=== PATIENT | male | born 1950 | race Asian ===

== ENCOUNTER 2018-10-05 21:50 | Emergency (ER) | payer OTHER ==
[2018-10-06 02:00] LABS: ADD MAN DIFF? NO
[2018-10-06 02:03] LABS: BASOPHIL # 0.1 10^3/ul (0.0-0.1); BASOPHILS % 0.6 % (0.0-2.0); EOSINOPHILS # 0.3 10^3/ul (0.0-0.5); HEMATOCRIT 38.7 % (42.0-52.0); HEMOGLOBIN 11.9 g/dl (14.0-18.0); LYMPHOCYTES # 2.4 10^3/ul (0.8-2.9); LYMPHOCYTES % 27.7 % (15.0-51.0); MEAN CORPUSCULAR HGB CONC 30.7 g/dl (32.0-37.0); MEAN CORPUSCULAR VOLUME 71.4 fl (82.0-101.0); MONOCYTE # 0.7 10^3/ul (0.3-0.9); MONOCYTES % 8.1 % (0.0-11.0); NEUTROPHIL # 5.3 10^3/ul (1.6-7.5); PLATELET COUNT 398 10^3/UL (140-415); RED BLOOD COUNT 5.42 10^6/ul (4.70-6.10); RED CELL DISTRIBUTION WIDTH 14.2 % (11.5-14.5)
[2018-10-06 02:03] LABS: WHITE BLOOD COUNT 8.8 10^3/ul (4.8-10.8)
[2018-10-06 02:18] LABS: INR 1.02; PROTIME 13.5 Sec (11.9-14.9); PT RATIO 1.1
[2018-10-06 02:19] LABS: ALANINE AMINOTRANSFERASE 20 IU/L (13-69); ALBUMIN 4.6 g/dl (3.3-4.9); ALBUMIN/GLOBULIN RATIO 1.24; ALKALINE PHOSPHATASE 85 IU/L (42-121); ANION GAP 17 (5-13); ASPARTATE AMINO TRANSFERASE 21 IU/L (15-46); BILIRUBIN,INDIRECT 0.1 mg/dl (0-1.1); BILIRUBIN,TOTAL 0.1 mg/dl (0.2-1.3); BLOOD UREA NITROGEN 22 mg/dl (7-20); CALCIUM 9.8 mg/dl (8.4-10.2); CARBON DIOXIDE 25 mmol/L (21-31); CHLORIDE 98 mmol/L (97-110); CREATININE 1.32 mg/dl (0.61-1.24); Estimated GFR 54 mL/min (>60); GLUCOSE 162 mg/dl (70-220); LIPASE 99 U/L (23-300); PARTIAL THROMBOPLASTIN TIME 32.6 Sec (23.0-35.0); POTASSIUM 4.7 mmol/L (3.5-5.1); SODIUM 140 mmol/L (135-144); TOTAL PROTEIN 8.3 g/dl (6.1-8.1)
[2018-10-06 02:27] LABS: B-TYPE NATRIURETIC PEPTIDE 72 PG/ML (0-125)
[2018-10-06 02:32] LABS: TROPONIN-I 0.033 ng/ml (0.000-0.120)
[2018-10-06 04:10] LABS: FREE THYROXINE INDEX (Calc) 4.05 ug/ml (0.65-3.89); T3 UPTAKE 34.9 % (23.5-40.5); T4 (THYROXINE) 11.6 ug/dl (5.5-11.0)
== END 2018-10-06 09:30 | disposition home or self-care (01) ==
LOC: E/R 21:50
DX: R60.0 Localized edema (principal); E11.9 Type 2 diabetes mellitus without complications; I10 Essential (primary) hypertension; E03.9 Hypothyroidism, unspecified; J45.909 Unspecified asthma, uncomplicated; R07.9 Chest pain, unspecified; Z87.891 Personal history of nicotine dependence
CPT/HCPCS: 36415; 71045; 80053; 83690; 83880; 84436; 84443; 84479; 84484; 85025; 85610; 85730; 93005; 99285-25

== ENCOUNTER 2018-10-27 00:05 | Emergency (ER) | payer OTHER ==
[2018-10-27] MEDS ORDERED: SODIUM CHLORIDE 0.9% 1L BAG IV* (00:34)
[2018-10-27 00:48] LABS: MODE ROOM AIR; MetHgb Venous 0.2 %; Sample Type Blood venous; Site VENOUS LINE; Venous COHb 0.4 %; Venous Fraction OxyHgb 58.3 %; Venous Oxygen Sat 58.7 mmHG (55.0-75.0); Venous Total Hemglobin 11.8 g/dl
[2018-10-27 00:59] LABS: ADD MAN DIFF? NO
[2018-10-27 01:00] LABS: WHITE BLOOD COUNT 12.1 10^3/ul (4.8-10.8)
[2018-10-27 01:00] LABS: BASOPHIL # 0.1 10^3/ul (0.0-0.1); BASOPHILS % 0.5 % (0.0-2.0); EOSINOPHILS # 0.1 10^3/ul (0.0-0.5); HEMATOCRIT 35.9 % (42.0-52.0); HEMOGLOBIN 11.1 g/dl (14.0-18.0); LYMPHOCYTES # 1.8 10^3/ul (0.8-2.9); LYMPHOCYTES % 14.5 % (15.0-51.0); MEAN CORPUSCULAR HEMOGLOBIN 21.7 pg (29.0-33.0); MEAN CORPUSCULAR HGB CONC 30.9 g/dl (32.0-37.0); MEAN CORPUSCULAR VOLUME 70.1 fl (82.0-101.0); MONOCYTES % 8.5 % (0.0-11.0); NEUTROPHIL # 9.1 10^3/ul (1.6-7.5); NEUTROPHILS % 74.5 % (39.0-77.0); PLATELET COUNT 445 10^3/UL (140-415); RED BLOOD COUNT 5.12 10^6/ul (4.70-6.10); RED CELL DISTRIBUTION WIDTH 14.1 % (11.5-14.5)
[2018-10-27 01:18] LABS: ALANINE AMINOTRANSFERASE 16 IU/L (13-69); ALBUMIN 4.1 g/dl (3.3-4.9); ALBUMIN/GLOBULIN RATIO 1.07; ALKALINE PHOSPHATASE 73 IU/L (42-121); ANION GAP 14 (5-13); ASPARTATE AMINO TRANSFERASE 19 IU/L (15-46); BILIRUBIN,INDIRECT 0.1 mg/dl (0-1.1); BILIRUBIN,TOTAL 0.1 mg/dl (0.2-1.3); BLOOD UREA NITROGEN 29 mg/dl (7-20); CALCIUM 9.3 mg/dl (8.4-10.2); CARBON DIOXIDE 23 mmol/L (21-31); CHLORIDE 97 mmol/L (97-110); CREATININE 1.59 mg/dl (0.61-1.24); Estimated GFR 43 mL/min (>60); GLUCOSE 271 mg/dl (70-220); SODIUM 134 mmol/L (135-144); TOTAL PROTEIN 7.9 g/dl (6.1-8.1)
[2018-10-27 01:19] LABS: PHOSPHORUS 3.3 mg/dl (2.5-4.9)
[2018-10-27 01:19] LABS: MAGNESIUM 1.9 mg/dl (1.7-2.5)
[2018-10-27 01:22] LABS: INR 1.07; PT RATIO 1.1
[2018-10-27 01:23] LABS: PARTIAL THROMBOPLASTIN TIME 34.3 Sec (23.0-35.0)
[2018-10-27 01:31] LABS: TROPONIN-I 0.028 ng/ml (0.000-0.120)
[2018-10-27 02:56] LABS: ADD UMIC YES; UR ASCORBIC ACID NEGATIVE (NEGATIVE); UR BILIRUBIN (Dip) NEGATIVE (NEGATIVE); UR BLOOD (Dip) 1+ mg/dL (NEGATIVE); UR CLARITY CLEAR (CLEAR); UR COLOR STRAW (YELLOW); UR GLUCOSE (Dip) 3+ mg/dL (NEGATIVE); UR KETONES (Dip) NEGATIVE (NEGATIVE); UR LEUKOCYTE ESTERASE (Dip) NEGATIVE Leu/ul (NEGATIVE); UR NITRITE (Dip) NEGATIVE (NEGATIVE); UR RBC 0 /HPF (0-5); UR SPECIFIC GRAVITY (Dip) 1.007 (1.003-1.030); UR TOTAL PROTEIN (Dip) NEGATIVE (NEGATIVE); UR UROBILINOGEN (Dip) NEGATIVE (NEGATIVE); UR WBC 4 /HPF (0-5)
[2018-10-27 04:31] LABS: URINE BLOOD (Dip) POC Negative (NEGATIVE); URINE KETONES (Dip) POC Negative (NEGATIVE); URINE LEUKOCYTE EST (Dip) POC Negative (NEGATIVE); URINE NITRITE (Dip) POC Negative (NEGATIVE); URINE TOTAL PROTEIN POC Negative (NEGATIVE)
[2018-10-27 04:31] LABS: URINE PH (Dip) POC 5.5 (5.0-8.5)
[2018-10-27] MEDS ORDERED: DOCUSATE SODIUM 100 MG CAP PO (06:30)
[2018-10-27] MEDS ORDERED: ONDANSETRON 4 MG TAB PO (06:30)
[2018-10-27] MEDS ORDERED: NACL 0.9% 3 ML SYG IV ×2 (06:30)
[2018-10-27] MEDS ORDERED: traMADol 50 MG TAB PO (06:30)
[2018-10-27] MEDS: ACCU-CHEK XX ×2 (07:49→11:12)
[2018-10-27] MEDS: SOD CHLORIDE 0.9% 1,000 ML IV (07:55)
[2018-10-27] MEDS ORDERED: glipiZIDE (XL) 2.5 MG TAB PO (09:00)
[2018-10-27 09:33] LABS: LACTIC ACID 2.4 mmol/L (0.5-2.0)
[2018-10-27] MEDS: GLIMEPIRIDE 4 MG TAB PO (10:00)
[2018-10-27] MEDS ORDERED: TRIAMTERENE/HCTZ (37.5/25) TAB PO (10:00)
[2018-10-27] MEDS: metFORMIN 500 MG TAB PO (10:00)
[2018-10-27] MEDS: ASPIRIN (EC) 81 MG TAB PO (10:39)
[2018-10-27] MEDS: FAMOTIDINE 20 MG TAB PO (10:39)
[2018-10-27] MEDS: FLUTICASONE 0.05% 16 GM NAS SPRAY NASAL (10:40)
[2018-10-27] MEDS: LISINOPRIL 20 MG TAB PO (10:41)
[2018-10-27] MEDS: GABAPENTIN 300 MG CAP PO (10:41)
[2018-10-27] MEDS: LEVOTHYROXINE 50 MCG TAB PO (10:41)
[2018-10-27] MEDS: ENOXAPARIN 40 MG/0.4 ML SYG SC (10:42)
[2018-10-27] MEDS: FLUTICASONE/VILANTEROL 200-25 INH DEVICE INH (10:42)
[2018-10-27] MEDS: TRIAMTERENE/HCTZ (37.5/25) TAB PO (10:43)
[2018-10-27] MEDS ORDERED: ATORVASTATIN 20 MG TAB PO (21:00)
== END 2018-10-27 17:14 | disposition home or self-care (01) ==
LOC: E/R 00:05
DX: G93.40 Encephalopathy, unspecified (principal); E03.9 Hypothyroidism, unspecified; I13.0 Hypertensive heart and chronic kidney disease with heart failure and stage 1 through stage 4 chronic kidney disease, or unspecified chronic kidney disease; I50.9 Heart failure, unspecified; N18.9 Chronic kidney disease, unspecified; E11.22 Type 2 diabetes mellitus with diabetic chronic kidney disease; J45.909 Unspecified asthma, uncomplicated; D64.9 Anemia, unspecified; Z87.891 Personal history of nicotine dependence; Z79.82 Long term (current) use of aspirin; Z79.84 Long term (current) use of oral hypoglycemic drugs
CPT/HCPCS: 36415; 70450; 71045; 80053; 81001; 81003; 82803; 82962; 83605; 83735; 84100; 84484; 85025; 85610; 85730; 87040-91; 87086; 92610; 93005; 96372; 99285-25

== ENCOUNTER 2019-01-13 14:02 | Inpatient (IN) | payer OTHER ==
[2019-01-13] MEDS: SOD CHLORIDE 0.9% 1,000 ML IV ×2 (15:02→21:16)
[2019-01-13 15:05] LABS: ADD MAN DIFF? NO
[2019-01-13 15:11] LABS: BASOPHIL # 0.1 10^3/ul (0.0-0.1); BASOPHILS % 0.8 % (0.0-2.0); EOSINOPHILS # 0.2 10^3/ul (0.0-0.5); EOSINOPHILS % 2.2 % (0.0-7.0); HEMATOCRIT 36.4 % (42.0-52.0); HEMOGLOBIN 11.2 g/dl (14.0-18.0); LYMPHOCYTES # 1.6 10^3/ul (0.8-2.9); LYMPHOCYTES % 18.1 % (15.0-51.0); MEAN CORPUSCULAR HEMOGLOBIN 22.4 pg (29.0-33.0); MEAN CORPUSCULAR HGB CONC 30.8 g/dl (32.0-37.0); MEAN CORPUSCULAR VOLUME 72.8 fl (82.0-101.0); MEAN PLATELET VOLUME 9.5 fl (7.4-10.4); MONOCYTE # 0.5 10^3/ul (0.3-0.9); MONOCYTES % 5.3 % (0.0-11.0); NEUTROPHIL # 6.3 10^3/ul (1.6-7.5); NEUTROPHILS % 72.8 % (39.0-77.0); PLATELET COUNT 340 10^3/UL (140-415); RED CELL DISTRIBUTION WIDTH 15.9 % (11.5-14.5)
[2019-01-13 15:11] LABS: WHITE BLOOD COUNT 8.6 10^3/ul (4.8-10.8)
[2019-01-13 15:35] LABS: ALANINE AMINOTRANSFERASE 16 IU/L (13-69); ALBUMIN 4.3 g/dl (3.3-4.9); ALBUMIN/GLOBULIN RATIO 1.22; ALKALINE PHOSPHATASE 76 IU/L (42-121); ANION GAP 12 (5-13); ASPARTATE AMINO TRANSFERASE 17 IU/L (15-46); BLOOD UREA NITROGEN 32 mg/dl (7-20); CALCIUM 9.1 mg/dl (8.4-10.2); CARBON DIOXIDE 17 mmol/L (21-31); CHLORIDE 110 mmol/L (97-110); CREATINE KINASE 35 IU/L (23-200); CREATININE 2.76 mg/dl (0.61-1.24); Estimated GFR 23 mL/min (>60); GLUCOSE 273 mg/dl (70-220); SODIUM 139 mmol/L (135-144); TOTAL PROTEIN 7.8 g/dl (6.1-8.1)
[2019-01-13 15:39] LABS: INR 1.01; PROTIME 13.4 Sec (11.9-14.9)
[2019-01-13 15:40] LABS: PARTIAL THROMBOPLASTIN TIME 34.3 Sec (23.0-35.0)
[2019-01-13 15:45] LABS: CK INDEX 2.4; CK-MB 0.83 ng/ml (0.0-2.4); TROPONIN-I < 0.012 ng/ml (0.000-0.120)
[2019-01-13] MEDS: CEFEPIME 2GM/50 ML (PMX) 50 ML IVPB (15:59)
[2019-01-13] MEDS: SODIUM CHLORIDE 0.9% 1L BAG IV* (16:00)
[2019-01-13 16:08] LABS: ACETAMINOPHEN < 10.0 ug/ml (10.0-30.0); ETHANOL < 10.0 mg/dl (0-0)
[2019-01-13 16:11] LABS: POTASSIUM 6.5 mmol/L (3.5-5.1)
[2019-01-13] MEDS: VANCOMYCIN 1 GM (PMX) 250 ML IVPB (16:25)
[2019-01-13 16:38] LABS: ADD UMIC NO; UR ASCORBIC ACID NEGATIVE (NEGATIVE); UR BILIRUBIN (Dip) NEGATIVE (NEGATIVE); UR BLOOD (Dip) NEGATIVE (NEGATIVE); UR CLARITY CLEAR (CLEAR); UR COLOR YELLOW (YELLOW); UR GLUCOSE (Dip) 3+ mg/dL (NEGATIVE); UR KETONES (Dip) NEGATIVE (NEGATIVE); UR LEUKOCYTE ESTERASE (Dip) NEGATIVE Leu/ul (NEGATIVE); UR NITRITE (Dip) NEGATIVE (NEGATIVE); UR SPECIFIC GRAVITY (Dip) 1.007 (1.003-1.030); UR TOTAL PROTEIN (Dip) NEGATIVE (NEGATIVE); UR UROBILINOGEN (Dip) NEGATIVE (NEGATIVE)
[2019-01-13 16:47] LABS: LACTIC ACID 2.5 mmol/L (0.5-2.0)
[2019-01-13] MEDS: NA BICARBONATE 8.4% 50 ML SYG IV (17:04)
[2019-01-13] MEDS: CA CHLORIDE 10% 10 ML SYRINGE IV (17:04)
[2019-01-13] MEDS: SODIUM POLYSTYRENE 15 GM KIT (POWDER + SORBITOL) PO (17:04)
[2019-01-13] MEDS: ALBUTEROL 0.5% (NEB) 2.5 MG/0.5 ML AMP INH (17:09)
[2019-01-13 17:27] LABS: AMPHETAMINE/METHAMPHETAMINE Negative (NEGATIVE); BARBITURATES Negative (NEGATIVE); CANNABINOIDS Negative (NEGATIVE); COCAINE Negative (NEGATIVE); OPIATES Negative (NEGATIVE)
[2019-01-13] MEDS ORDERED: ACETAMINOPHEN 325 MG TAB PO (17:30)
[2019-01-13] MEDS ORDERED: ONDANSETRON 4 MG INJ IV (17:30)
[2019-01-13 17:36] LABS: BENZODIAZEPINES Positive (NEGATIVE)
[2019-01-13 18:26] LABS: AMMONIA < 9 umol/l (9-30)
[2019-01-13 18:29] LABS: LACTIC ACID 3.4 mmol/L (0.5-2.0)
[2019-01-13] MEDS ORDERED: NON-FORMULARY/PATIENT OWN MED (Omeprazole* 20 MG) PO (18:30)
[2019-01-13] MEDS ORDERED: DEXTROSE 50% 50 ML SYRINGE IV ×2 (19:00)
[2019-01-13] MEDS ORDERED: GLUCOSE GEL 15 GRAM TUBE BUCCAL (19:00)
[2019-01-13] MEDS ORDERED: GLUCAGON 1 MG INJ IM (19:00)
[2019-01-13] MEDS ORDERED: GLUCOSE GEL 15 GRAM TUBE PO ×2 (19:00)
[2019-01-13 19:03] LABS: MAGNESIUM 1.9 mg/dl (1.7-2.5)
[2019-01-13 19:03] LABS: PHOSPHORUS 3.2 mg/dl (2.5-4.9)
[2019-01-13] MEDS: INSULIN ASPART [NOVOLOG] 3 ML PEN SC (21:00)
[2019-01-13] MEDS: TAMSULOSIN (SR) 0.4 MG CAP PO (21:18)
[2019-01-13] MEDS: ATORVASTATIN 20 MG TAB PO (21:18)
[2019-01-13] MEDS: NA POLYST SULFON 15 GM/60 ML BTL PO (21:47)
[2019-01-13 21:52] LABS: ANION GAP 11 (5-13); BLOOD UREA NITROGEN 29 mg/dl (7-20); CALCIUM 9.8 mg/dl (8.4-10.2); CARBON DIOXIDE 20 mmol/L (21-31); CHLORIDE 114 mmol/L (97-110); CREATININE 2.52 mg/dl (0.61-1.24); Estimated GFR 25 mL/min (>60); GLUCOSE 194 mg/dl (70-220); POTASSIUM 5.1 mmol/L (3.5-5.1); SODIUM 145 mmol/L (135-144)
[2019-01-13] MEDS: ASPIRIN (EC) 81 MG TAB PO (21:52)
[2019-01-13 21:53] LABS: LACTIC ACID 2.6 mmol/L (0.5-2.0)
[2019-01-13 22:33] LABS: SALICYLATE < 1.0 mg/dl (5.0-30.0)
[2019-01-13 22:38] LABS: FREE THYROXINE INDEX (Calc) 3.34 ug/ml (0.65-3.89); T4 (THYROXINE) 7.4 ug/dl (5.5-11.0)
[2019-01-13 23:11] LABS: T3 UPTAKE 45.2 % (23.5-40.5)
[2019-01-14] MEDS: clonAZEPAM 0.5 MG TAB PO ×2 (01:53→23:34)
[2019-01-14] MEDS: LEVOTHYROXINE 50 MCG TAB PO (05:52)
[2019-01-14] MEDS: PANTOPRAZOLE (EC) 40 MG TAB PO (05:52)
[2019-01-14] MEDS: SOD CHLORIDE 0.9% 1,000 ML IV (05:53)
[2019-01-14 07:06] LABS: ANION GAP 14 (5-13); BLOOD UREA NITROGEN 26 mg/dl (7-20); CALCIUM 9.8 mg/dl (8.4-10.2); CARBON DIOXIDE 21 mmol/L (21-31); CHLORIDE 113 mmol/L (97-110); CREATINE KINASE 37 IU/L (23-200); CREATININE 2.53 mg/dl (0.61-1.24); Estimated GFR 25 mL/min (>60); GLUCOSE 170 mg/dl (70-220); POTASSIUM 5.1 mmol/L (3.5-5.1); SODIUM 148 mmol/L (135-144)
[2019-01-14] MEDS: INSULIN ASPART [NOVOLOG] 3 ML PEN SC ×2 (07:55→11:50)
[2019-01-14] MEDS: GABAPENTIN 300 MG CAP PO (08:27)
[2019-01-14] MEDS: ASPIRIN (EC) 81 MG TAB PO (08:27)
[2019-01-14] MEDS ORDERED: LEVOTHYROXINE 50 MCG TAB PO (09:00)
[2019-01-14 09:24] LABS: SODIUM,URINE RANDOM 89 mmol/L (30-90)
[2019-01-14 09:28] LABS: CREATININE,URINE RANDOM 43.36 mg/dl (20-370); PROTEIN/CREAT RATIO 0.46 RATIO
[2019-01-14] MEDS: SOD CHLORIDE 0.45% 1,000 ML IV ×2 (09:34→21:30)
[2019-01-14] MEDS: AMLODIPINE 5 MG TAB PO (12:05)
[2019-01-14] MEDS: QUETIAPINE 25 MG TAB PO ×2 (16:12→20:56)
[2019-01-14] MEDS: ACCU-CHEK XX ×2 (17:25→20:56)
[2019-01-14] MEDS: TAMSULOSIN (SR) 0.4 MG CAP PO (20:55)
[2019-01-14] MEDS: GLIMEPIRIDE 4 MG TAB PO (20:55)
[2019-01-14] MEDS: ATORVASTATIN 20 MG TAB PO (20:56)
[2019-01-15] MEDS ORDERED: VANCOMYCIN 1 GM (PMX) 250 ML IVPB (01:00)
[2019-01-15] MEDS ORDERED: VANCOMYCIN IV PER PHARMACY XX (01:30)
[2019-01-15] MEDS: VANCOMYCIN 1 GM 250 ML IVPB (01:52)
[2019-01-15] MEDS: LEVOTHYROXINE 50 MCG TAB PO (06:00)
[2019-01-15] MEDS: PANTOPRAZOLE (EC) 40 MG TAB PO (06:00)
[2019-01-15] MEDS: ACCU-CHEK XX ×2 (07:25→11:43)
[2019-01-15] MEDS: GLIMEPIRIDE 4 MG TAB PO (08:09)
[2019-01-15] MEDS: ASPIRIN (EC) 81 MG TAB PO (08:09)
[2019-01-15] MEDS: GABAPENTIN 300 MG CAP PO (08:09)
[2019-01-15] MEDS: NIFEdipine (XL) 30 MG TAB PO (08:10)
[2019-01-15] MEDS: SOD CHLORIDE 0.45% 1,000 ML IV (08:26)
[2019-01-15 08:33] LABS: ANION GAP 11 (5-13); BLOOD UREA NITROGEN 29 mg/dl (7-20); CALCIUM 9.1 mg/dl (8.4-10.2); CARBON DIOXIDE 23 mmol/L (21-31); CHLORIDE 109 mmol/L (97-110); CREATININE 2.54 mg/dl (0.61-1.24); Estimated GFR 25 mL/min (>60); GLUCOSE 278 mg/dl (70-220); POTASSIUM 4.4 mmol/L (3.5-5.1); SODIUM 143 mmol/L (135-144)
== END 2019-01-15 14:30 | DRG 682 ==
LOC: E/R 14:02 → TEL 17:16
DX: N17.0 Acute kidney failure with tubular necrosis (principal); G93.41 Metabolic encephalopathy; E11.22 Type 2 diabetes mellitus with diabetic chronic kidney disease; E87.5 Hyperkalemia; I12.9 Hypertensive chronic kidney disease with stage 1 through stage 4 chronic kidney disease, or unspecified chronic kidney disease; N18.9 Chronic kidney disease, unspecified; N18.3 Chronic kidney disease, stage 3 (moderate); E78.5 Hyperlipidemia, unspecified; E03.9 Hypothyroidism, unspecified; F29 Unspecified psychosis not due to a substance or known physiological condition; Z79.82 Long term (current) use of aspirin; Z79.4 Long term (current) use of insulin; Z79.84 Long term (current) use of oral hypoglycemic drugs
CPT/HCPCS: 36415; 70450; 71045; 76775; 80048; 80053; 80307; 81003; 82140; 82550; 82553; 82570; 82962; 83605; 83735; 84100; 84300; 84436; 84479; 84484; 84560; 85025; 85610; 85730; 87040-91; 87086; 93005; 94664; 96361; 96374; 96375; 99285-25